=== PATIENT | female | born 1955 | race African-American/Black ===

== ENCOUNTER 2020-05-25 10:21 | Emergency (ER) | payer MEDICAID ==
[~2020-05-25] VITALS: Ht 157.5 cm; Wt 70.5 kg
[2020-05-25 11:25] VITALS: BP 118/58
== END 2020-05-25 11:26 | disposition home or self-care (01) ==
LOC: ER 10:21
DX: R61 Generalized hyperhidrosis (principal); J44.9 Chronic obstructive pulmonary disease, unspecified; Z90.710 Acquired absence of both cervix and uterus; Z87.891 Personal history of nicotine dependence
CPT/HCPCS: 99281

== ENCOUNTER 2020-12-24 11:40 | Emergency (ER) | payer MEDICAID ==
[~2020-12-24] VITALS: Ht 157.5 cm; Wt 76.0 kg
[2020-12-24 12:17] VITALS: BP 152/89
[2020-12-24] MEDS ORDERED: IBUPROFEN 600MG TABLET PO ONE (13:15)
[2020-12-24] MEDS ORDERED: KETOROLAC 30MG/ML VIAL IM ONE (13:45)
== END 2020-12-24 14:26 | disposition home or self-care (01) ==
LOC: ER 11:40
DX: M25.571 Pain in right ankle and joints of right foot (principal); J45.909 Unspecified asthma, uncomplicated; I10 Essential (primary) hypertension; Z88.0 Allergy status to penicillin; Z90.710 Acquired absence of both cervix and uterus
CPT/HCPCS: 93970; 96372; 99284; J1885; Z7610

== ENCOUNTER 2020-12-26 13:41 | Emergency (ER) | payer MEDICAID ==
[~2020-12-26] VITALS: Ht 157.5 cm; Wt 70.0 kg
[2020-12-26] MEDS ORDERED: IBUPROFEN 600MG TABLET PO STA (14:19)
[2020-12-26 15:21] LABS: CLARITY URINE CLEAR (CLEAR); COLOR URINE YELLOW (YELLOW); KETONES URINE NEGATIVE (NEGATIVE); LEUKOCYTE ESTERASE URINE NEGATIVE (NEGATIVE); NITRITE URINE NEGATIVE (NEGATIVE); OCCULT BLOOD URINE NEGATIVE (NEGATIVE); PROTEIN URINE NEGATIVE (NEGATIVE); SPECIFIC GRAVITY URINE 1.007 (1.005-1.030); UROBILINOGEN URINE 0.2 E.U./dL (0.2-1.0)
[2020-12-26] MEDS ORDERED: KETOROLAC 15MG/ML VIAL IV ONE (16:00)
[2020-12-26 16:28] LABS: BASOPHILS % 1.1 % (0.0-2.0); EOSINOPHILS % 7.4 % (0.0-5.0); HEMATOCRIT. 40.5 % (36.0-48.0); HEMOGLOBIN. 13.4 g/dL (12.0-16.0); LYMPHOCYTES % 32.4 % (20.0-50.0); MEAN CORPUSCULAR HEMOGLOBIN 28.6 pg (28.0-32.0); MEAN CORPUSCULAR VOLUME 86.6 fL (81.0-99.0); MEAN PLATELET VOLUME 7.5 fl (7.4-10.4); MONOCYTES % 12.9 % (2.0-8.0); NEUTROPHILS % 46.2 % (40.0-76.0); PLATELET 352 x1000/uL (130-400); RED BLOOD CELL COUNT 4.67 mill/uL (4.2-5.4)
[2020-12-26 16:34] LABS: CHLORIDE 101 mEq/L (98-107)
[2020-12-26] MEDS ORDERED: POTASSIUM CHLORIDE 20MEQ TABLET SR PO NR (17:00)
[2020-12-26 18:30] VITALS: BP 132/78
== END 2020-12-26 18:31 | disposition home or self-care (01) ==
LOC: ER 13:41
DX: R60.9 Edema, unspecified (principal); E87.6 Hypokalemia; J45.909 Unspecified asthma, uncomplicated; I10 Essential (primary) hypertension; M54.30 Sciatica, unspecified side; Z88.0 Allergy status to penicillin; Z98.890 Other specified postprocedural states; Z90.710 Acquired absence of both cervix and uterus
CPT/HCPCS: 36415; 71045; 80053; 81003; 83880; 84484; 85025; 85379; 93005; 93970; 96374; 99285; J1885